=== PATIENT | male | born 1985 | race Caucasian/White ===

== ENCOUNTER 2018-04-12 01:49 | Emergency (ER) | payer BC ==
[2018-04-12] MEDS ORDERED: SODIUM CHLORIDE 0.9% 1000ML 1,000 ML IVS ONE (02:22)
[2018-04-12] MEDS ORDERED: ONDANSETRON INJ 4 MG/2 ML VIAL IV ONE (02:22)
[2018-04-12] MEDS ORDERED: BENZONATATE PERLES 100 MG CAP PO ONE (03:00)
[2018-04-12] MEDS ORDERED: ACETAMINOPHEN 325 MG TAB ONE (03:07)
[2018-04-12] MEDS ORDERED: ACETAMINOPHEN 325 MG TAB PO ONE (03:08)
[2018-04-12] MEDS ORDERED: KETOROLAC TROMETHAMINE INJ 30 MG/ML VIAL IV ONE (04:04)
[2018-04-12] MEDS ORDERED: SUMAtriptan SUCCINATE INJ 6 MG/0.5 ML VIAL SUBCU ONE (04:04)
[2018-04-12 04:34] VITALS: TEMP 99.4
--- NOTE | 2018-04-12 04:45 | ED.PDOC ---
History of Present Illness - General Chief Complaint: General Stated Complaint: headache, nausea,blurred vision Time Seen by Provider: 04/12/18 02:00 Source: patient Exam Limitations: no limitations - History of Present Illness Initial Comments: Patient presents with headache and N/V since 8 pm. He has had "migraines" before and says he usually gets hydrocodone for them. He has had a dry cough as well. He also complains of general chills. No other complaints. Timing/Duration: 4-6 hours Severity: mild Improving Factors: nothing Worsening Factors: nothing Associated Symptoms: denies symptoms Allergies/Adverse Reactions: Allergies NO KNOWN ALLERGY Allergy (Verified 04/12/18 02:11) Home Medications: Ambulatory Orders Alprazolam [Xanax] 2 mg PO Q6HR PRN 04/12/18 chlorproMAZINE HCL [Thorazine] 50 mg PO TID 04/12/18 Review of Systems - Review of Systems Constitutional: States: see HPI EENTM: States: no symptoms reported Respiratory: States: see HPI Cardiology: States: no symptoms reported Gastrointestinal/Abdominal: States: see HPI Genitourinary: States: no symptoms reported Musculoskeletal: States: no symptoms reported Skin: States: no symptoms reported Neurological: States: no symptoms reported Endocrine: States: no symptoms reported Hematologic/Lymphatic: States: no symptoms reported Past Medical History (General) - Patient Medical History Hx Seizures: No Hx Asthma: Yes Hx Cardiac Disorders: No Hx Hypertension: No Hx Thyroid Disease: No Hx Diabetes: No Hx Gastroesophageal Reflux: No Hx Cancer: No Surgical History: no surgical history - Vaccination History Hx Tetanus, Diphtheria Vaccination: Yes Hx Influenza Vaccination: Yes Hx Pneumococcal Vaccination: No - Social History Hx Alcohol Use: No Family Medical History - Family History Mother Family History: Unknown Physical Exam - Physical Exam General Appearance: Alert Eye Exam: bilateral normal Ears, Nose, Throat: normal ENT inspection Neck: non-tender, full range of motion, supple Respiratory: lungs clear, normal breath sounds Cardiovascular/Chest: normal peripheral pulses, regular rate, rhythm, no edema Gastrointestinal/Abdominal: normal bowel sounds, non tender, soft Back Exam: normal inspection, no CVA tenderness Extremity: normal range of motion, non-tender, normal inspection Neurologic: radiology assistant II-XII nml as tested, no motor/sensory deficits, alert, normal mood/affect, oriented x 3 Lymphatic: no adenopathy Progress - Progress Progress: 04/12/18 04:45 Laboratory Tests 04/12/18 04/12/18 04/12/18 02:08 02:08 02:08 WBC 9.8 RBC 5.21 Hgb 15.5 Hct 45.1 MCV 86.6 MCH 29.8 MCHC 34.4 RDW 12.9 Plt Count 368 MPV 7.0 L Absolute Neuts (auto) 5.70 Absolute Lymphs (auto) 2.50 Absolute Monos (auto) 0.80 Absolute Eos (auto) 0.70 H Absolute Basos (auto) 0.10 Neutrophils % 58.6 Lymphocytes % 25.6 Monocytes % 8.1 Eosinophils % 6.9 H Basophils % 0.8 Sodium 137 Potassium 3.9 Chloride 102 Carbon Dioxide 27 Anion Gap 11.9 L BUN 8 Creatinine 0.81 BUN/Creatinine Ratio 9.9 L Random Glucose 123 H Serum Osmolality 273.5 L Calcium 9.5 Total Bilirubin 0.5 AST 23 ALT 28 Alkaline Phosphatase 50 Serum Total Protein 7.6 Albumin 4.1 Globulin 3.5 Albumin/Globulin Ratio 1.2 Group A Strep Rapid Negative Influenza and strep negative. Patient was given zofran and had one episode of vomiting. He said that he thinks its his typical headache that his causing his symptoms. He was given toradol 30 mg IV and sumatryptin 6 mg SC x one and the headache improved. He decided that he wanted to leave at that point. Care instructions given. E.R. warnings given. Questions were elicited and answered. The patient voiced understanding and agreement with the plan. Departure - Departure Clinical Impression: Headache, Nausea & vomiting Disposition: Discharge to Home or Self Care Condition: Good Departure Forms: ED Discharge - Pt. Copy, Patient Portal Self Enrollment Instructions: Migraine Headaches in Adults, Nausea and Vomiting, Adult (DC) Diet: resume usual diet Activity: increase activity as tolerated Home Medications: Ambulatory Orders Alprazolam [Xanax] 2 mg PO Q6HR PRN 04/12/18 chlorproMAZINE HCL [Thorazine] 50 mg PO TID 04/12/18 Additional Instructions: Return to the E.R. if symptoms worsen or for temperature above 100.4.
[2018-04-12 04:53] VITALS: BP 138/90; O2SAT 98
== END 2018-04-12 04:53 | disposition home or self-care (01) ==
LOC: ER 01:49
DX: R51 Headache (principal); R11.2 Nausea with vomiting, unspecified; R05 Cough; J45.909 Unspecified asthma, uncomplicated; Z79.899 Other long term (current) drug therapy
CPT/HCPCS: 36415; 80053; 85025; 87070; 87502; 87880; J1885; J2405; J3030; J7030